=== PATIENT | female | born 1960 | race Caucasian/White ===

== ENCOUNTER → 2020-12-31 | Outpatient (CLI) | payer MEDICARE, OTHER ==
[2020-12-31 14:07] VITALS: BP 144/80; PULSE 73; TEMP 98.1; BMI 56.6
--- NOTE | 2020-12-31 15:12 | P.HPBAR ---
Bariatric H&P - History & Physicial H&P Date: 12/31/20 History & Physicial: Visit/CC: initial clinic visit Patient initial contact: Initial weight: Initial weight in pounds: Height: 5 ft Initial BMI: Last weight: Current weight: 131.542 kg Current weight in pounds: 290.00 Current BMI: 56.6 [place] body weight (based on NIH guidelines): 45.359 kg Excess body weight loss: The patient is a 60 year-old F who presents for Bariatric Assessment. The patient presents to the bariatric clinic complaints of morbid obesity. States she has suffered with her weight for many years. She has been through the weight loss surgery process on 2 separate occasions previously once at [facility] and once at [facility]. The first time the patient says she was fearful and canceled the surgery the second time was related to Covid. Remains interested in sleeve gastrectomy. Her best friend had the sleeve. Patient states this is the heaviest she has been. She is using a walker because of severe knee arthritis bilaterally and is unable to walk without the walker for the most part. Current BMI 56. Patient has medical history including asthma osteoarthritis and mild reflux. Patient quit tobacco in 2005. In 2006 patient had a acute pulmonary embolism and was on the ventilator for a prolonged period of time requiring tracheostomy. Patient states she has no residual lung damage from that that she is aware of. Denies DVT. He is on Coumadin still. Surgical history includes hysterectomy, laparoscopic cholecystectomy, bladder suspension, tracheostomy. Says she had a full cardiac workup 2 years ago. No known heart problems. Review of Systems The patient denies any acute changes in vision or hearing, no dysphagia or odynophagia, no chest pain or shortness of breath, no dysuria or hematuria, no headache, no runny nose, no rectal bleeding or melena, no unexplained weight loss Past Medical History Past Medical History: Asthma, COPD, Pneumonia Additional Past Medical History / Comment(s): Hx. exzema, irregular hear rate History of Any Multi-Drug Resistant Organisms: None Reported Past Surgical History: Bladder Surgery, Cholecystectomy, Hysterectomy Additional Past Surgical History / Comment(s): Hx. tracheotomy from PE in 2005 Past Anesthesia/Blood Transfusion Reactions: No Reported Reaction Past Psychological History: No Psychological Hx Reported Smoking Status: Former smoker Past Alcohol Use History: Rare Past Drug Use History: None Reported Surgical - Exam Vital Signs Temp Pulse BP 98.1 F 73 144/80 12/31/20 13:57 12/31/20 13:57 12/31/20 13:57 Physical exam: General: Well-developed, well-nourished HEENT: Normocephalic, sclerae nonicteric Abdomen: Nontender, nondistended Extremities: No edema Neuro: Alert and oriented Bariatric Assessment & Plan (1) Morbid obesity with BMI of 50.0-59.9, adult Narrative/Plan: Patient good candidate for weight loss surgery. Patient interested in sleeve gastrectomy. Risks and benefits of the potential common there are 2 procedures reviewed again. Average weight loss with the bariatric procedures discussed as well. We'll plan upper endoscopy prior to scheduling for sleeve gastrectomy. Patient will follow-up with me back in the office after EGD performed. Will obtain medical clearance from Dr. De Santiago. Status: Acute Bariatric Checklist Checklist: Plan: Checklist: EGD: 1. Hiatal hernia: 2. H. Pylori: HgbA1c: Vitamin D: Smoking: Never smoker Primary care physician referral: [facility] Psychiatry clearance: Cardiology clearance: Sleep study: Diet journal: VTE risk score: VTE risk level: Rehab needs at discharge:
== END ==
LOC: BARWHC3 13:23
PROVIDERS: ATTEND Surgery
DX: E66.01 Morbid (severe) obesity due to excess calories (principal); J44.9 Chronic obstructive pulmonary disease, unspecified; Z87.891 Personal history of nicotine dependence; Z68.43 Body mass index [BMI] 50.0-59.9, adult; Z88.0 Allergy status to penicillin; Z91.012 Allergy to eggs; Z88.1 Allergy status to other antibiotic agents
CPT/HCPCS: 99203

== ENCOUNTER → 2021-02-12 | Outpatient (CLI) | payer MEDICARE, OTHER ==
[2021-02-12 20:01] LABS: Iron 82 ug/dL (50-170)
[2021-02-12 20:13] LABS: Folate, Serum 19.9 ng/mL
[2021-02-12 21:36] LABS: Vitamin B12 >4000.0 pg/mL (211-911)
== END | disposition home or self-care (01) ==
LOC: LABWHC1 10:26
PROVIDERS: ATTEND Surgery
DX: E89.1 Postprocedural hypoinsulinemia (principal); E55.9 Vitamin D deficiency, unspecified; E66.01 Morbid (severe) obesity due to excess calories; K90.89 Other intestinal malabsorption
CPT/HCPCS: 36415; 82607; 82746; 83540; 84425; 93005

== ENCOUNTER 2021-02-16 09:45 | Day surgery (SDC) | payer MEDICARE, OTHER ==
[2021-02-11 14:37] VITALS: BMI 53.8
[~2021-02-16 09:45] MED LIST: LACTATED RINGERS 1,000 ML IV SCH
[2021-02-16 10:20] VITALS: TEMP 98.4
[2021-02-16] MEDS ORDERED: PROPOFOL 10 MG/ML 20 ML VIAL IV ONE (10:49)
[2021-02-16] MEDS ORDERED: LIDOCAINE 1% INJ 10MG/ML (20 ML MDV) ONE (10:49)
--- NOTE | 2021-02-16 10:54 | P.GSHP ---
History of Present Illness H&P Date: 02/16/21 Chief Complaint: GERD, preoperative 60-year-old female seen in the office in December for bariatric assessment. She is interested in sleeve gastrectomy. Mild reflux symptoms. Medical history of asthma and arthritis GERD PE. Past Medical History Past Medical History: Asthma, COPD, Pneumonia Additional Past Medical History / Comment(s): Hx. exzema, irregular hear rate History of Any Multi-Drug Resistant Organisms: None Reported Date of last positivie culture/infection: 2016 MDRO Source:: anal Past Surgical History: Bladder Surgery, Cholecystectomy, Hysterectomy Additional Past Surgical History / Comment(s): Hx. tracheotomy from PE in 2005 Past Anesthesia/Blood Transfusion Reactions: No Reported Reaction Smoking Status: Former smoker Medications and Allergies Home Medications Medication Instructions Recorded Confirmed Type HYDROcodone/APAP 7.5-325MG [[place] 1 tab PO BID PRN 12/18/13 02/16/21 History 7.5-325] Levothyroxine Sodium [Synthroid] 50 mcg PO QAM 12/18/13 02/16/21 History Warfarin [Coumadin] 7.5 mg PO DAILY 12/18/13 02/11/21 History Albuterol Sulfate [Proair Hfa] 2 puff INHALATION BID PRN 12/24/13 02/16/21 History Metoprolol Tartrate [Lopressor] 75 mg PO BID 12/24/13 02/16/21 History Furosemide [Lasix] 40 mg PO DAILY PRN 09/09/14 02/16/21 History Ascorbic Acid [Vitamin C] 500 mg PO DAILY 01/15/21 02/11/21 History Cholecalciferol (Vitamin D3) 125 mcg PO DAILY 01/15/21 02/11/21 History [Vitamin D3 (5000 Iu)] Cyanocobalamin [Vitamin B-12] 500 mcg PO BID 01/15/21 02/16/21 History Fluticasone/Salmeterol [Advair Hfa 2 puff INHALATION BID 01/15/21 02/16/21 History 115-21 Mcg Inhaler] Vitamin A 3,000 mcg PO DAILY 01/15/21 02/11/21 History Vitamin B Complex 1 each PO DAILY 01/15/21 02/11/21 History Zinc 50 mg PO DAILY 01/15/21 02/11/21 History Enoxaparin [Lovenox] 120 mg SQ Q12HR 02/11/21 02/16/21 History Ipratropium-Albuterol Nebulize 3 ml INHALATION Q4H PRN 02/11/21 02/16/21 History [Duoneb 0.5 mg-3 mg/3 ml Soln] Allergies Allergy/AdvReac Type Severity Reaction Status Date / Time Penicillins Allergy Severe Rash/Hives Verified 02/16/21 10:12 tetracycline [Tetracycline] Allergy Severe Rash/Hives Verified 02/16/21 10:12 cephalexin [From Keflex] Allergy Rash/Hives Verified 02/16/21 10:12 sulfamethoxazole Allergy Rash/Hives Verified 02/16/21 10:12 [From Bactrim] trimethoprim [From Bactrim] Allergy Rash/Hives Verified 02/16/21 10:12 raw eggs Allergy BURNING IN Uncoded 02/16/21 10:12 EARS Surgical - Exam Vital Signs Temp Pulse Resp BP Pulse Ox 98.4 F 67 17 183/84 94 L 02/16/21 10:16 02/16/21 10:16 02/16/21 10:16 02/16/21 10:16 02/16/21 10:16 Physical exam: General: Well-developed, well-nourished HEENT: Normocephalic, sclerae nonicteric Abdomen: Nontender, nondistended Extremities: No edema Neuro: Alert and oriented Assessment and Plan (1) Morbid obesity with BMI of 50.0-59.9, adult Narrative/Plan: Will proceed with upper endoscopy Current Visit: No Status: Acute Code(s): E66.01 - MORBID (SEVERE) OBESITY DUE TO EXCESS CALORIES; Z68.43 - BODY MASS INDEX [BMI] 50.0-59.9, ADULT SNOMED Code(s): 531189735
--- NOTE | 2021-02-16 11:03 | P.PCN ---
Date of Procedure: 02/16/21 Procedure(s) Performed: Preoperative Dx: GERD, presurgical Postoperative Dx: Mild gastritis Procedure: EGD with Bx Anesthesia: Sedation Endoscopist: Dr. Dominguez Specimens: Antrum Endoscopic Procedure: The patient was on the endoscopy table in the left decubitus position. The Olympus gastroscope was inserted into the oropharynx and passed under direct visualization to the region of the third portion of the duodenum. From that point the scope was slowly withdrawn inspecting all surfaces carefully. There were no neoplastic inflammatory or polypoid lesions throughout the duodenum. The pylorus was widely patent. The stomach was carefully inspected. There was mild gastritis present. A biopsy of the antrum took place to rule out H. pylori. Retroflexion revealed a normal hiatus. The esophagus was then carefully examined. There were no neoplastic inflammatory or polypoid lesions throughout the visualized esophagus. The patient was then taken to the recovery room in stable condition per anesthesia guidelines. Recommendations: Resume diet. Follow-up bariatric clinic.
[2021-02-16 11:22] VITALS: BP 162/81; PULSE 58; RESP 18
== END 2021-02-16 11:35 | disposition home or self-care (01) ==
LOC: ORWHC2ENDO 09:45
PROVIDERS: ATTEND Surgery
DX: K21.9 Gastro-esophageal reflux disease without esophagitis (principal); K29.50 Unspecified chronic gastritis without bleeding; J44.9 Chronic obstructive pulmonary disease, unspecified; Z87.891 Personal history of nicotine dependence; Z79.899 Other long term (current) drug therapy; Z88.0 Allergy status to penicillin; Z88.2 Allergy status to sulfonamides; Z88.1 Allergy status to other antibiotic agents; Z91.012 Allergy to eggs; E66.01 Morbid (severe) obesity due to excess calories; Z68.43 Body mass index [BMI] 50.0-59.9, adult; I10 Essential (primary) hypertension; M19.90 Unspecified osteoarthritis, unspecified site; E07.9 Disorder of thyroid, unspecified; Z86.711 Personal history of pulmonary embolism; Z79.01 Long term (current) use of anticoagulants
CPT/HCPCS: 88305; 43239; J2001; J2704

== ENCOUNTER → 2021-03-01 | Outpatient (CLI) | payer MEDICARE, OTHER ==
[2021-03-01 15:43] VITALS: BMI 56.0
== END ==
LOC: BARWHC3 08:48
PROVIDERS: ATTEND Surgery
DX: E66.01 Morbid (severe) obesity due to excess calories (principal); Z71.3 Dietary counseling and surveillance; Z68.43 Body mass index [BMI] 50.0-59.9, adult; Z88.0 Allergy status to penicillin; Z88.1 Allergy status to other antibiotic agents; Z88.2 Allergy status to sulfonamides; Z91.012 Allergy to eggs
CPT/HCPCS: 97804

== ENCOUNTER → 2021-04-20 | Outpatient (CLI) | payer MEDICARE, OTHER ==
--- NOTE | 2021-04-21 10:53 | ECHOF ---
Referral Reason:I27.20 pulmonary hypertension MEASUREMENTS -------- HEIGHT: 152.4 cm WEIGHT: 128.4 kg BP: IVSd: 1.3 cm (0.6 - 1.1) LVIDd: 4.4 cm (3.9 - 5.3) LVPWd: 1.3 cm (0.6 - 1.1) EDV(Teich): 87 ml IVSs: 1.6 cm LVIDs: 3.1 cm LVPWs: 1.5 cm %IVS Thck: 26 % ESV(Teich): 37 ml EF(Teich): 57 % %FS: 30 % SV(Teich): 50 ml RVIDd: 4.0 cm (< 3.3) IVC: 20.78 mm LALs A4C: 4.9 cm LAAs A4C: 16.8 cm LAESV A-L A4C: 49 ml LAESV MOD A4C: 44 ml LALs A2C: 5.1 cm LAAs A2C: 18.1 cm LAESV A-L A2C: 55 ml LAESV MOD A2C: 52 ml LAESV(A-L): 53 ml LAESV Index (A-L): 24.47 ml/m Ao Diam: 2.7 cm (2.0 - 3.7) LA Diam: 3.4 cm (2.7 - 3.8) AV Cusp: 1.8 cm (1.5 - 2.6) EPSS: 0.4 cm MV E Dc: 0.81 m/s MV DecT: 180 ms MV Dec Zavala: 4.5 m/s MV A Dc: 0.97 m/s MV E/A Ratio: 0.84 MV PHT: 52 ms LVOT Vmax: 0.95 m/s LVOT maxP.64 mmHg AV Vmax: 1.32 m/s AV maxP.95 mmHg TR Vmax: 2.81 m/s TR maxP.61 mmHg RAP: 5.00 mmHg RVSP: 36.61 mmHg MV EF SLOPE: 89.33 mm/s (70 - 150) MV EXCURSION: 17.70 mm (> 18.000) FINDINGS -------- Sinus rhythm. This was a technically difficult study with suboptimal views. The left ventricular size is normal. There is mild concentric left ventricular hypertrophy. Overa ll left ventricular systolic function is normal with, an EF between 55 - 60 %. The diastolic fillin g pattern is normal for the age of the patient 14.54. The right ventricle is moderately enlarged. Normal LA size by volume 22+/-6 ml/m2. The right atrium was not well visualized. 5.0mg of Lumason was utilized for enhancement of images Interatrial and interventricular septum intact. There is no evidence of aortic regurgitation. There is no evidence of aortic stenosis. No mitral regurgitation. Mild tricuspid regurgitation present. There is mild pulmonary hypertension. The right ventricular systolic pressure, as measured by Doppler, is 36.61mmHg. There is no pulmonic regurgitation present. The aortic root size is normal. The inferior vena cava is mildly dilated. There is no pericardial effusion. CONCLUSIONS -------- 1. The left ventricular size is normal. 2. There is mild concentric left ventricular hypertrophy. 3. Overall left ventricular systolic function is normal with, an EF between 55 - 60 %. 4. The right ventricle is moderately enlarged. 5. Mild tricuspid regurgitation present. 6. There is mild pulmonary hypertension. 7. The right ventricular systolic pressure, as measured by Doppler, is 36.61mmHg. 8. The inferior vena cava is mildly dilated. DIRECT SUPPORT SPECIALIST: Kaitlynn Milton RDCS
== END | disposition home or self-care (01) ==
LOC: RADECHMAIN 14:59
PROVIDERS: ATTEND Family Medicine
DX: I27.20 Pulmonary hypertension, unspecified (principal); I07.1 Rheumatic tricuspid insufficiency
CPT/HCPCS: C8929; Q9950; 93306

== ENCOUNTER → 2021-05-04 | Outpatient (CLI) | payer MEDICARE, OTHER ==
[2021-05-04 16:09] VITALS: BP 178/68; PULSE 76; TEMP 98; BMI 54.9
--- NOTE | 2021-05-04 16:22 | P.BASOAP ---
Subjective Progress Note Date: 05/04/21 Principal diagnosis: Morbid obesity Patient returns for repeat preop evaluation. Underwent EGD 02/16 showing mild gastritis. 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 Remains on what thinners in the form of eloquis. No changes to her history and physical. Remains interested in sleeve gastrectomy. Objective - Vital Signs Vital signs: Vital Signs Temp 98 F 05/04/21 15:56 Pulse 76 05/04/21 15:56 Resp BP 178/68 05/04/21 15:56 Pulse Ox Intake & Output 05/03/21 05/04/21 05/04/21 18:59 06:59 18:59 Weight 129.727 kg - Exam Abdomen: Soft, nontender, nondistended Assessment/Plan (1) Morbid obesity with BMI of 50.0-59.9, adult Narrative/Plan: 60-year-old female with morbid obesity and comorbidities. Patient remains interested in sleeve gastrectomy. Surgical consent form and [facility] IP data reviewed with her. All questions answered. Await medical clearance and pulmonary clearance. We'll schedule. Plan: Date: 05/04/21 Initial Weight: Initial BMI: Current Weight: 129.727 kg Current BMI: 54.9 Type of Surgery: Total Volume in Band: Previous Volume: Volume Removed: Volume Added: Band Size:
== END ==
LOC: BARWHC3 14:27
PROVIDERS: ATTEND Surgery
DX: E66.01 Morbid (severe) obesity due to excess calories (principal); Z68.43 Body mass index [BMI] 50.0-59.9, adult; Z88.0 Allergy status to penicillin; Z88.1 Allergy status to other antibiotic agents; Z88.2 Allergy status to sulfonamides; Z91.012 Allergy to eggs
CPT/HCPCS: 99211

== ENCOUNTER → 2021-06-19 | Outpatient (CLI) | payer MEDICARE, OTHER ==
[2021-06-19 12:11] LABS: Basophils # (A) 0.1 k/uL (0-0.2); Basophils % (A) 1 %; Eosinophils # (A) 0.2 k/uL (0-0.7); Eosinophils % (A) 2 %; HCT 44.2 % (34.0-46.0); HGB 14.3 gm/dL (11.4-16.0); Lymphocytes % (A) 19 %; MCH 29.4 pg (25.0-35.0); MCHC 32.4 g/dL (31.0-37.0); MCV 90.9 fL (80.0-100.0); Mean Platelet Volume 7.5; Monocytes # (A) 0.5 k/uL (0-1.0); Monocytes % (A) 5 %; Neutrophils # (A) 7.6 k/uL (1.3-7.7); Neutrophils % (A) 71 %; Platelet Count 252 k/uL (150-450); RBC 4.86 m/uL (3.80-5.40); RDW 13.8 % (11.5-15.5); WBC 10.6 k/uL (3.8-10.6)
[2021-06-19 12:29] LABS: ALT 40 U/L (4-34); AST 34 U/L (14-36); African American GFR (CKD) >90 (>60 ml/min/1.73 sqM); Albumin 3.8 g/dL (3.5-5.0); Alkaline Phosphatase 84 U/L (38-126); Anion Gap 7 mmol/L; Blood Urea Nitrogen 28 mg/dL (7-17); Calcium 10.1 mg/dL (8.4-10.2); Carbon Dioxide 30 mmol/L (22-30); Chloride 101 mmol/L (98-107); Glucose 108 mg/dL (74-99); Non-African American GFR(CKD) >90 (>60 ml/min/1.73 sqM); Sodium 138 mmol/L (137-145); Total Bilirubin 0.6 mg/dL (0.2-1.3); Total Protein 7.4 g/dL (6.3-8.2)
== END | disposition home or self-care (01) ==
LOC: LABPAT 11:21
PROVIDERS: ATTEND Surgery
DX: Z01.812 Encounter for preprocedural laboratory examination (principal)
CPT/HCPCS: 36415; 80053; 85025

== ENCOUNTER 2021-06-21 07:45 | Inpatient (IN) | payer MEDICARE, OTHER ==
[~2021-06-21 07:45] MED LIST changes: +CLINDAMYCIN 900 MG in DEXTROSE 5% IN WATER 50 ML IVPB PRN; +DEXAMETHASONE SOD PHOSPHATE 4 MG/ML 1 ML VIAL IV ONE; +ENOXAPARIN 40 MG/0.4 ML SYRINGE SQ PRN; +GENTAMICIN 400 MG in SODIUM CHLORIDE 0.9% 100 ML IVPB PRN; -LACTATED RINGERS 1,000 ML IV SCH; +LIDOCAINE 1% (10MG/ML) FOR IV START INTRADERMA PRN; +ONDANSETRON 4 MG/2 ML VIAL IVP ONE; +SCOPOLAMINE 1.5MG/72HR PATCH TRANSDERM ONE
--- NOTE | 2021-06-21 09:51 | P.GSHP ---
History of Present Illness H&P Date: 06/21/21 Chief Complaint: Morbid obesity 60-year-old female initially seen for bariatric consultation in December of this year. Patient has tried a variety of weight loss methods over the years without sustained success. Patient is interested in sleeve gastrectomy. Patient suffers from arthritis asthma and mild reflux. Patient with history of previous pulmonary embolism and required a tracheostomy at that time. Remains on Coumadin. Patient underwent recent upper endoscopy showing mild gastritis. Recent BMI 56. History of previous tobacco use but quit many years ago. Past Medical History Past Medical History: Asthma, COPD, Musculoskeletal Disorder, Osteoarthritis (OA), Pneumonia, Pulmonary Embolus (PE), Thyroid Disorder Additional Past Medical History / Comment(s): Hx. exzema, irregular heart rate, PE in 2005, hypoglycemia, low back pain, urinary incontinence History of Any Multi-Drug Resistant Organisms: None Reported Past Surgical History: Bladder Surgery, Cholecystectomy, Hysterectomy Additional Past Surgical History / Comment(s): Hx. tracheotomy from PE in 2005, bladder suspension, EGD Past Anesthesia/Blood Transfusion Reactions: No Reported Reaction Smoking Status: Former smoker - Past Family History Mother Family Medical History: No Reported History Medications and Allergies Home Medications Medication Instructions Recorded Confirmed Type Albuterol Sulfate [Proair Hfa] 2 puff INHALATION BID PRN 12/24/13 06/17/21 History Metoprolol Tartrate [Lopressor] 75 mg PO BID 12/24/13 06/17/21 History Furosemide [Lasix] 20 mg PO DAILY PRN 09/09/14 06/17/21 History Ascorbic Acid [Vitamin C] 500 mg PO DAILY 01/15/21 06/17/21 History Cholecalciferol (Vitamin D3) 125 mcg PO DAILY 01/15/21 06/17/21 History [Vitamin D3 (5000 Iu)] Cyanocobalamin [Vitamin B-12] 500 mcg PO DAILY 01/15/21 06/17/21 History Fluticasone/Salmeterol [Advair Hfa 2 puff INHALATION BID 01/15/21 06/17/21 History 115-21 Mcg Inhaler] Vitamin B Complex 1 each PO DAILY 01/15/21 06/17/21 History Zinc 50 mg PO DAILY 01/15/21 06/17/21 History Ipratropium-Albuterol Nebulize 3 ml INHALATION Q4H PRN 02/11/21 06/17/21 History [Duoneb 0.5 mg-3 mg/3 ml Soln] Apixaban [Eliquis] 5 mg PO BID 03/01/21 06/17/21 History HYDROcodone/APAP 7.5-325MG [[place] 1 tab PO Q6HR PRN 06/17/21 06/17/21 History 7.5-325] Levothyroxine Sodium [Euthyrox] 50 mcg PO DAILY 06/17/21 06/17/21 History Potassium Gluconate [Potassium 99 mg PO HS 06/17/21 06/17/21 History Gluconate ER] Allergies Allergy/AdvReac Type Severity Reaction Status Date / Time Penicillins Allergy Severe Rash/Hives Verified 06/17/21 12:05 tetracycline [Tetracycline] Allergy Severe Rash/Hives Verified 06/17/21 12:05 cephalexin [From Keflex] Allergy Rash/Hives Verified 06/17/21 12:05 sulfamethoxazole Allergy Rash/Hives Verified 06/17/21 12:05 [From Bactrim] trimethoprim [From Bactrim] Allergy Rash/Hives Verified 06/17/21 12:05 raw eggs Allergy BURNING IN Uncoded 06/17/21 12:05 EARS Surgical - Exam Physical exam: General: Well-developed, well-nourished HEENT: Normocephalic, sclerae nonicteric Abdomen: Nontender, nondistended Extremities: No edema Neuro: Alert and oriented Assessment and Plan (1) Morbid obesity with BMI of 50.0-59.9, adult Narrative/Plan: Will proceed with laparoscopic sleeve gastrectomy at this time. Medical clearance has been obtained by Dr. De Santiago. Patient's recent echo shows normal ejection fraction. The risks of bleeding, infection, stenosis, stricture, leak, abscess, fistula formation, peritonitis, poor weight loss, reflux, vomiting, conversion to an open procedure, aborting sleeve gastrectomy, [place], PE, DVT, and were discussed. The patient understands and wishes to proceed. Status: Acute Code(s): E66.01 - MORBID (SEVERE) OBESITY DUE TO EXCESS CALORIES; Z68.43 - BODY MASS INDEX [BMI] 50.0-59.9, ADULT SNOMED Code(s): 421721604
[2021-06-21] MEDS: LACTATED RINGERS 1,000 ML IV SCH (10:51)
[2021-06-21 10:56] LABS: Glucose,Whole Blood 101 mg/dL (75-99)
[2021-06-21] MEDS ORDERED: PROPOFOL 10 MG/ML 20 ML VIAL IV ONE (11:00)
[2021-06-21] MEDS ORDERED: PHENYLEPHRINE-0.9% NACL SYG 1,000 MCG/10 ML SYRINGE ONE (11:00)
[2021-06-21] MEDS ORDERED: NEOSTIGMINE 1 MG/ML 10 ML VIAL ONE (11:00)
[2021-06-21] MEDS ORDERED: HYDROmorphone (PF) 1 MG/ML ONE (11:00)
[2021-06-21] MEDS ORDERED: SUCCINYLCHOLINE CHLORIDE 100 MG/5 ML SYR IV ONE (11:00)
[2021-06-21] MEDS ORDERED: GLYCOPYRROLATE 0.2 MG/ML 2 ML VIAL ONE (11:00)
[2021-06-21] MEDS ORDERED: ROCURONIUM 10 MG/ML (5 ML VIAL) IV ONE (11:00)
[2021-06-21] MEDS ORDERED: fentaNYL (PF) 50 MCG/ML 2 ML AMP ONE (11:00)
[2021-06-21] MEDS ORDERED: MIDAZOLAM 2 MG/2 ML VIAL ONE (11:00)
[2021-06-21] MEDS ORDERED: LIDOCAINE 1% INJ 10MG/ML (20 ML MDV) ONE (11:00)
[2021-06-21] MEDS ORDERED: BUPIVACAINE (PF) 0.25% 30 ML VIAL SQ ONE (11:31)
[2021-06-21] MEDS ORDERED: LACTATED RINGERS 1,000 ML IV ONE ×2 (12:45)
[2021-06-21] MEDS ORDERED: METHYLENE BLUE 3 MG in DEXTROSE 5% IN WATER 500 ML IRRIGATION ONE ×4 (13:03)
[2021-06-21] MEDS ORDERED: NALOXONE 0.4 MG/ML 1 ML VIAL IV PRN (13:21)
[2021-06-21] MEDS ORDERED: HYOSCYAMINE ORAL DROPS 1.875 MG/15 ML BOTTLE PO PRN (13:21)
[2021-06-21] MEDS ORDERED: diphenhydrAMINE 50 MG/ML 1 ML VIAL IVP PRN (13:21)
[2021-06-21] MEDS ORDERED: ONDANSETRON 4 MG/2 ML VIAL IVP PRN (13:21)
--- NOTE | 2021-06-21 13:28 | P.OP ---
Date of Procedure: 06/21/21 Procedure(s) Performed: PREOPERATIVE DIAGNOSIS: Morbid obesity, asthma, arthritis, GERD POSTOPERATIVE DIAGNOSIS: Same, small moderate sized hiatal hernia PROCEDURE: Laparoscopic sleeve gastrectomy SURGEON: Alberto EBL: Minimal ANESTHESIA: General COMPLICATIONS: None OPERATIVE PROCEDURE: Patient was placed in the operating table in the supine position. She was placed under general anesthesia at that time. The abdomen was prepped and draped in sterile fashion after the patient was placed in lithotomy. A 5 mm optical trocar was used to enter the abdominal cavity in the left upper quadrant. Insufflation took place to 15 millimeters mercury. An additional right subxiphoid 5 mm trocar was then placed under direct visualization and then removed. 2 additional 5 mm trochars were placed in the right upper quadrant and left upper quadrant under direct visualization and a 15 mm trocar in the supraumbilical location. The liver was retracted using a medium Norm liver retractor through the right subxiphoid trocar site. The hiatus was inspected. The patient had evidence of a small moderate sized hiatal hernia. The patient also was noted to have an adhesive band between the body of the stomach in the left abdominal wall closer to the greater curvature. This was from previous suspected PEG tube placement. These adhesions were easily lysed using a LigaSure. I approached the greater curvature first. The short gastric vasculature was divided using a LigaSure device proximally. I then s witched and divided the short gastrics distally to a 3-4 cm from the pylorus. The dissection took place up to the left diaphragmatic crura at that point. The posterior short gastrics were likewise divided using the LigaSure device. At that point the hiatus was addressed. Circumferentially the phrenoesophageal ligament was divided. The gastrohepatic ligament had been opened. Retrogastric dissection took place fully. The hiatus was later closed using 2 separate 2-0 Ethibond sutures reapproximating the crura posteriorly. The sutures were tied down using the tie knot device. At this time the blunt tipped 40-Sammarinese bougie dilator was advanced into the stomach and advanced all the way to the prepyloric location. A black echelon 60 stapler with echelon Endopath staple line reinforcement was utilized and fired tangentially across the antrum taking care to avoid narrowing at the incisura angularis. Subsequent firings of the green echelon 60 stapler with echelon Endopath staple line reinforcement took place proximally staying on the outer edge of our dilator. The oral gastric tube was reinserted. The stomach was insufflated with approximately 100 mL of methylene blue. No evidence of leak or obstruction was seen. Tisseel fibrin glue was used along the length of the staple line. The stomach remnant was removed from the 15 mm trocar site without difficulty. The fascia at the 15 more site was closed using interrupted 0 Vicryl sutures with the laparoscopic suture passer and Addy Jean technique. The insufflation was evacuated. The skin at all 5 incisions were closed using 4-0 Monocryl sutures. Skin glue was then applied. DISPOSITION: Stable to recovery room
[2021-06-21] MEDS ORDERED: diphenhydrAMINE 50 MG/ML 1 ML VIAL IVP ONE (13:33)
[2021-06-21] MEDS: HYDROmorphone 0.5 MG/0.5 ML SYRINGE IVP PRN ×3 (13:57→14:38)
[2021-06-21] MEDS ORDERED: hydrALAZINE HCL 20 MG/ML 1 ML VIAL IVP ONE (14:34)
[2021-06-21] MEDS ORDERED: hydrALAZINE HCL 20 MG/ML 1 ML VIAL ONE (14:36)
[2021-06-21] MEDS: ALBUTEROL NEBULIZED 2.5 MG/3 ML INHALATION SCH ×2 (16:35→21:27)
[2021-06-21] MEDS: ACETAMINOPHEN IV (For NPO) 1,000 MG in EMPTY BAG 1 BAG IVPB SCH ×2 (17:06→22:21)
[2021-06-21] MEDS: HYDROmorphone 1 MG/ML 1 ML SYRINGE IVP PRN ×3 (17:29→23:45)
[2021-06-21] MEDS ORDERED: ALBUTEROL NEBULIZED 2.5 MG/3 ML INHALATION PRN (18:26)
[2021-06-21] MEDS: 0.9% NACL WITH KCL 20 MEQ/L 1,000 ML IV SCH ×2 (18:42→21:31)
[2021-06-21] MEDS: SIMETHICONE 40 MG/0.6 ML DROPS 2,000 MG/30 ML BOTTLE PO PRN (19:53)
[2021-06-21] MEDS: METOPROLOL TARTRATE 25 MG TAB PO SCH (19:55)
--- NOTE | 2021-06-21 21:06 | P.CONS ---
History of Present Illness - Reason for Consult Consult date: 06/21/21 Medical management Requesting physician: Santi Dominguez - Chief Complaint Sleeve gastrectomy - History of Present Illness This is a very pleasant 60-year-old patient who follows with Dr. De Santiago. Chronic stable medical conditions include COPD, osteoarthritis, pulmonary embolism in 2006, hypothyroid, urinary incontinence. Patient has undergone sleeve gastrectomy. Postprocedure patient nothing by mouth. Having pain in the abdomen. No nausea vomiting. Laying in bed. Review of systems: GEN.: Tired EYES: None HEENT: None NECK: None RESPIRATORY: None CARDIOVASCULAR: None GASTROINTESTINAL: As above GENITOURINARY: None MUSCULOSKELETAL: Pain in several joints LYMPHATICS: None HEMATOLOGICAL: None PSYCHIATRY: None NEUROLOGICAL: None Past medical history to include: COPD, OA, PE, hypothyroid, eczema, urinary incontinence, Social history: This is a brother. Smoked a pack a day for close to 30 years. Stopped in 2005. Alcohol rarely. Family history: Reviewed, noncontributory to presentation Physical examination: VITAL SIGNS: Afebrile, 74, 16, 1 46 x 91, 91% GENERAL: BMI 54.9, laying in bed awake. EYES: Pupils equal. Conjunctiva normal. HEENT: External appearance of nose and ears normal, oral cavity grossly normal. NECK: JVD not raised; masses not palpable. HEART: First and second heart sounds are normal; no edema. LUNGS: Respiratory rate normal; decreased breath sounds. ABDOMEN: Soft, tender, no guarding rigidity, liver spleen not palpable, no masses palpable. PSYCH: Alert and oriented x3; mood and affect normal. NEUROLOGICAL: Cranial nerves grossly intact; no facial asymmetry, power and sensation grossly intact. LYMPHATICS: No lymph nodes palpable in the axilla and neck INVESTIGATIONS, reviewed in the clinical context: [June 19] WBC 10.6 hemoglobin 14.3 platelets 252 potassium 5 BUN 28 creatinine 0.71 Assessment and plan:: -Morbid obesity BMI 54.9 Weight loss measures. -Sleeve gastrectomy. Diet as per surgery. Oral medications should be resumed when okay by surgeon. -COPD in an ex-smoker Advair 150/21 2 puffs twice a day, albuterol 2 puffs twice a day when necessary -Primary osteoarthritis multiple joints bilateral Pain medication as needed -Hypothyroid Synthroid 50 g a day -Chronic urinary stress incontinence Diapers -Essential hypertension Lopressor 75 mg twice a day Patient is currently nothing by mouth. Follow fluoroscopy upper GI in the morning. Oral medications resumed when okay with Dr. Larson. Pneumatic compression sleeves. Incentive spirometry. Care was discussed with the patient. Questions answered. Thank you Dr. Larson Past Medical History Past Medical History: Asthma, COPD, Musculoskeletal Disorder, Osteoarthritis (OA), Pneumonia, Pulmonary Embolus (PE), Thyroid Disorder Additional Past Medical History / Comment(s): Hx. exzema, irregular heart rate, PE in 2005, hypoglycemia, low back pain, urinary incontinence. gastrectomy/hernia repair 06/21/2021 History of Any Multi-Drug Resistant Organisms: None Reported Past Surgical History: Bladder Surgery, Cholecystectomy, Hysterectomy Additional Past Surgical History / Comment(s): Hx. tracheotomy from PE in 2005, bladder suspension, EGD Past Anesthesia/Blood Transfusion Reactions: No Reported Reaction Past Psychological History: No Psychological Hx Reported Smoking Status: Former smoker Past Alcohol Use History: Rare Additional Past Alcohol Use History / Comment(s): quit smoking 2005, smoked since age of 15, <1ppd Past Drug Use History: None Reported - Past Family History Mother Family Medical History: No Reported History Medications and Allergies Home Medications Medication Instructions Recorded Confirmed Type Albuterol Sulfate [Proair Hfa] 2 puff INHALATION BID PRN 12/24/13 06/17/21 History Metoprolol Tartrate [Lopressor] 75 mg PO BID 12/24/13 06/17/21 History Furosemide [Lasix] 20 mg PO DAILY PRN 09/09/14 06/17/21 History Ascorbic Acid [Vitamin C] 500 mg PO DAILY 01/15/21 06/17/21 History Cholecalciferol (Vitamin D3) 125 mcg PO DAILY 01/15/21 06/17/21 History [Vitamin D3 (5000 Iu)] Cyanocobalamin [Vitamin B-12] 500 mcg PO DAILY 01/15/21 06/17/21 History Fluticasone/Salmeterol [Advair Hfa 2 puff INHALATION BID 01/15/21 06/17/21 History 115-21 Mcg Inhaler] Vitamin B Complex 1 each PO DAILY 01/15/21 06/17/21 History Zinc 50 mg PO DAILY 01/15/21 06/17/21 History Ipratropium-Albuterol Nebulize 3 ml INHALATION Q4H PRN 02/11/21 06/17/21 History [Duoneb 0.5 mg-3 mg/3 ml Soln] Apixaban [Eliquis] 5 mg PO BID 03/01/21 06/21/21 History HYDROcodone/APAP 7.5-325MG [[place] 1 tab PO Q6HR PRN 06/17/21 06/17/21 History 7.5-325] Levothyroxine Sodium [Euthyrox] 50 mcg PO DAILY 06/17/21 06/17/21 History Potassium Gluconate [Potassium 99 mg PO HS 06/17/21 06/17/21 History Gluconate ER] Allergies Allergy/AdvReac Type Severity Reaction Status Date / Time Penicillins Allergy Severe Rash/Hives Verified 06/21/21 10:55 tetracycline [Tetracycline] Allergy Severe Rash/Hives Verified 06/21/21 10:55 cephalexin [From Keflex] Allergy Rash/Hives Verified 06/21/21 10:55 sulfamethoxazole Allergy Rash/Hives Verified 06/21/21 10:55 [From Bactrim] trimethoprim [From Bactrim] Allergy Rash/Hives Verified 06/21/21 10:55 raw eggs Allergy BURNING IN Uncoded 06/21/21 10:55 EARS Physical Exam Vitals: Vital Signs Temp Pulse Pulse Pulse Resp BP Pulse Ox 06/21/21 17:15 100 146/91 91 L 06/21/21 17:00 89 155/85 93 L 06/21/21 16:53 74 06/21/21 16:45 89 159/100 91 L 06/21/21 16:36 76 94 L 06/21/21 16:30 90 133/82 93 L 06/21/21 16:15 87 129/85 96 06/21/21 16:00 91 133/88 94 L 06/21/21 15:45 97.6 F 97 16 145/88 92 L 06/21/21 15:03 80 16 149/76 99 06/21/21 14:48 83 18 174/71 100 06/21/21 14:32 68 16 175/82 100 06/21/21 14:18 76 16 176/78 95 06/21/21 14:03 86 18 187/88 95 06/21/21 13:47 81 18 148/65 97 06/21/21 13:33 74 18 148/67 95 06/21/21 13:26 96.8 F L 86 16 158/69 93 L 06/21/21 10:48 97.7 F 81 20 193/97 97 Intake and Output 06/21/21 06/21/21 06/21/21 06:59 14:59 22:59 Intake Total 1267 200 Output Total 10 Balance 1257 200 Intake: IV 1267 200 Output: Estimated Blood Loss 10 Other: Voiding Method Toilet Weight 127.5 kg 127.5 kg Results Labs: Abnormal Lab Results - Last 24 Hours (Table) 06/21/21 Range/Units 10:49 POC Glucose (mg/dL) 101 H (75-99) mg/dL
[2021-06-21] MEDS: SYMBICORT 160-4.5 MCG INHALER INHALATION SCH (21:28)
[2021-06-21] MEDS: ENOXAPARIN 40 MG/0.4 ML SYRINGE SQ SCH (23:46)
[2021-06-22] MEDS: ACETAMINOPHEN IV (For NPO) 1,000 MG in EMPTY BAG 1 BAG IVPB SCH ×3 (03:04→15:30)
[2021-06-22] MEDS: 0.9% NACL WITH KCL 20 MEQ/L 1,000 ML IV SCH (03:05)
[2021-06-22] MEDS: SIMETHICONE 40 MG/0.6 ML DROPS 2,000 MG/30 ML BOTTLE PO PRN ×3 (03:05→20:22)
[2021-06-22] MEDS: HYDROmorphone 1 MG/ML 1 ML SYRINGE IVP PRN ×3 (05:12→11:18)
[2021-06-22] MEDS: LEVOTHYROXINE 50 MCG TAB PO SCH (05:13)
[2021-06-22] MEDS: LACTATED RINGERS 1,000 ML IV SCH (06:54)
[2021-06-22] MEDS: SYMBICORT 160-4.5 MCG INHALER INHALATION SCH ×2 (08:03→20:10)
[2021-06-22] MEDS: ALBUTEROL NEBULIZED 2.5 MG/3 ML INHALATION SCH ×4 (08:03→20:10)
[2021-06-22] MEDS: ENOXAPARIN 40 MG/0.4 ML SYRINGE SQ SCH ×2 (08:23→20:22)
[2021-06-22] MEDS: 1: THIAMINE 100 MG, FOLIC ACID 1 MG in 0.9% NACL WITH KCL 20 MEQ/L 1,000 ML 2: 0.9% NAC IVPB SCH ×2 (08:23→21:13)
[2021-06-22] MEDS: PANTOPRAZOLE 40 MG/10 ML VIAL IV SCH (08:23)
--- NOTE | 2021-06-22 11:01 | P.PN ---
<Raiza Cox - Last Filed: 06/22/21 10:55> Subjective Progress Note Date: 06/22/21 CHIEF COMPLAINT: Morbid obesity HISTORY OF PRESENT ILLNESS: Patient is status post laparoscopic sleeve gastrectomy. Patient does complain of abdominal pain. Denies any nausea or vomiting. No flatus or bowel movement. She denies any difficulty urinating. She is currently nothing by mouth and awaiting her upper GI to be completed. Patient did have elevated blood pressure yesterday. BP has improved. Lab results pending PHYSICAL EXAM: VITAL SIGNS: Reviewed. GENERAL: Well-developed in no acute distress. HEENT: No sclera icterus. Extraocular movements grossly intact. Moist buccal mucosa. Head is atraumatic, normocephalic. ABDOMEN: Soft. Obese. Nondistended. Abdominal binder in place NEUROLOGIC: Alert and oriented. Cranial nerves II through XII grossly intact. ASSESSMENT: 1. Morbid obesity status post laparoscopic sleeve gastrectomy 2. Asthma 3. Osteoarthritis 4. GERD 5. Small moderate sized hiatal hernia PLAN: -Having nursing staff call to get upper GI completed -Keep patient nothing by mouth for now -Continue IV fluids -Add Toradol for pain control -Encouraged patient to use incentive spirometer -Encouraged patient to ambulate -GI prophylaxis Protonix and DVT prophylaxis Lovenox Physician Stoker Installation Mechanic note has been reviewed by physician. Signing provider agrees with the documented findings, assessment, and plan of care. Objective - Vital Signs Vital signs: Vital Signs Temp 98.9 F 06/22/21 07:46 Pulse 84 06/22/21 08:15 Resp 16 06/22/21 07:46 BP 117/68 06/22/21 07:46 Pulse Ox 99 06/22/21 07:46 Intake & Output 06/21/21 06/22/21 06/22/21 18:59 06:59 18:59 Intake Total 1467 Output Total 10 Balance 1457 Weight 127.5 kg Intake: IV 1467 Output: Estimated Blood Loss 10 Other: Voiding Method Toilet Toilet # Voids 3 - Labs Labs: Abnormal Lab Results - Last 24 Hours (Table) 06/21/21 Range/Units 10:49 POC Glucose (mg/dL) 101 H (75-99) mg/dL <Santi Dominguez - Last Filed: 06/22/21 19:09> Subjective As above. Patient doing well today. Pain is well-controlled. Upper GI looks good. Continue Toradol for pain. Ambulate. Possible discharge tomorrow. Objective - Vital Signs Vital signs: Vital Signs Temp 98.5 F 06/22/21 14:00 Pulse 70 06/22/21 16:18 Resp 18 06/22/21 14:00 BP 168/70 06/22/21 14:00 Pulse Ox 98 06/22/21 16:07 Intake & Output 06/22/21 06/22/21 06/23/21 06:59 18:59 06:59 Weight 127.5 kg Other: Voiding Method Toilet Toilet # Voids 3 3 - Labs CBC & Chem 7: 06/22/21 06:59 06/22/21 06:59 Labs: Abnormal Lab Results - Last 24 Hours (Table) 06/22/21 06/22/21 Range/Units 06:59 06:59 WBC 11.01 H (4.50-10.00) X 10*3/uL MCHC 31.2 L (32.0-37.0) g/dL Neutrophils # 8.38 H (1.80-7.70) X 10*3/uL Monocytes # 1.21 H (0.20-1.00) X 10*3/uL Eosinophils # 0.02 L (0.04-0.35) X 10*3/uL Anion Gap 12.30 H (4.00-12.00) mmol/L Assessment and Plan (1) Morbid obesity with BMI of 50.0-59.9, adult Current Visit: No Status: Acute Code(s): E66.01 - MORBID (SEVERE) OBESITY DUE TO EXCESS CALORIES; Z68.43 - BODY MASS INDEX [BMI] 50.0-59.9, ADULT SNOMED Code(s): 208861227
[2021-06-22 11:40] LABS: Basophils # (A) 0.03 X 10*3/uL (0.00-0.10); Basophils % (A) 0.3 %; Eosinophils # (A) 0.02 X 10*3/uL (0.04-0.35); Eosinophils % (A) 0.2 %; HCT 40.1 % (37.2-46.3); HGB 12.5 g/dL (12.0-15.0); Lymphocytes # (A) 1.33 X 10*3/uL (0.90-5.00); Lymphocytes % (A) 12.1 %; MCH 28.7 pg (27.0-32.0); MCHC 31.2 g/dL (32.0-37.0); Mean Platelet Volume 10.5 fL (9.5-12.2); Monocytes # (A) 1.21 X 10*3/uL (0.20-1.00); Neutrophils # (A) 8.38 X 10*3/uL (1.80-7.70); Platelet Count 238 X 10*3/uL (140-440); RBC 4.36 X 10*6/uL (4.10-5.20); RDW 14.4 % (11.5-14.5); WBC 11.01 X 10*3/uL (4.50-10.00)
[2021-06-22 11:43] VITALS: BMI 54.8
[2021-06-22 12:11] LABS: African American GFR (CKD) 108.4 (60.0-200.0); Anion Gap 12.3 mmol/L (4.00-12.00); Blood Urea Nitrogen 16.4 mg/dL (9.0-27.0); Calcium 8.8 mg/dL (8.7-10.3); Carbon Dioxide 25.7 mmol/L (21.6-31.8); Magnesium 1.9 mg/dL (1.5-2.4); Non-African American GFR(CKD) 93.5 (60.0-200.0); Phosphorus 3.4 mg/dL (2.4-5.1)
--- NOTE | 2021-06-22 12:53 | P.PN ---
Progress Note - Text Progress Note Date: 06/22/21 - Chief Complaint Sleeve gastrectomy This is a very pleasant 60-year-old patient who follows with Dr. De Santiago. Chronic stable medical conditions include COPD, osteoarthritis, pulmonary embolism in 2005, hypothyroid, urinary incontinence. Patient has undergone sleeve gastrectomy. Postprocedure patient nothing by mouth. Having pain in the abdomen. No nausea vomiting. Laying in bed. June 22: Reclining in bed. Some abdominal pain. No nausea vomiting. Pending barium upper GI. Did pass some flatus. Has been out of bed. Review of systems: Was done for constitutional, cardiovascular, GI, pulmonary. relevant finding as above Active Medications Acetaminophen (Acetaminophen Tab 500 Mg Tab) 1,000 mg PO Q6H [facility] Albuterol Sulfate (Albuterol Nebulized 2.5 Mg/3 Ml) 2.5 mg INHALATION RT-QID [facility] Last Admin: 06/22/21 11:51 Dose: Not Given Documented by: Albuterol Sulfate (Albuterol Nebulized 2.5 Mg/3 Ml) 2.5 mg INHALATION BID PRN PRN Reason: Shortness Of Breath Bisacodyl (Bisacodyl 5 Mg Tablet.Dr) 15 mg PO ONCE PRN PRN Reason: Constipation Budesonide/Formoterol Fumarate (Symbicort 160-4.5 Mcg Inhaler) 2 puff INHALATION RT-BID [facility] Last Admin: 06/22/21 08:03 Dose: 2 puff Documented by: Diphenhydramine HCl (Diphenhydramine 50 Mg/Ml 1 Ml Vial) 25 mg IVP Q6HR PRN PRN Reason: Itching Enoxaparin Sodium (Enoxaparin 40 Mg/0.4 Ml Syringe) 40 mg SQ Q12HR [facility] Last Admin: 06/22/21 08:23 Dose: 40 mg Documented by: Hydromorphone HCl (Hydromorphone 1 Mg/Ml 1 Ml Syringe) 1 mg IVP Q3HR PRN PRN Reason: Pain Last Admin: 06/22/21 11:18 Dose: 1 mg Documented by: Hyoscyamine (Hyoscyamine Oral Drops 1.875 Mg/15 Ml Bottle) 0.125 mg PO Q6HR PRN PRN Reason: Esophageal Spasm Thiamine HCl 100 mg/ Folic Acid 1 mg/ Potassium Chloride/Sodium Chloride 1,001.2 mls @ 100 mls/hr IVPB .BY DURATION [facility] Last Admin: 06/22/21 08:23 Dose: 100 mls/hr Documented by: Potassium Chloride/Sodium Chloride (Ns-Kcl 20 Meq/L Iv Solution) 1,000 mls @ 100 mls/hr IVPB .BY DURATION [facility] Acetaminophen 1,000 mg/ IV (Solution) 100 mls @ 400 mls/hr IVPB Q6H [facility] Stop: 06/22/21 16:59 Last Admin: 06/22/21 11:20 Dose: 400 mls/hr Documented by: Ketorolac Tromethamine (Ketorolac 15 Mg/Ml 1 Ml Vial) 15 mg IVP Q6HR [facility] Stop: 06/25/21 10:54 Levothyroxine Sodium (Levothyroxine 50 Mcg Tab) 50 mcg PO DAILY@0630 [facility] Last Admin: 06/22/21 05:13 Dose: Not Given Documented by: Lidocaine HCl (Lidocaine 1% (10mg/Ml) For Iv Start) 0.1 ml INTRADERMA PER PROTOCOL PRN PRN Reason: IV Start Last Admin: 06/21/21 10:49 Dose: 0.1 ml Documented by: Metoprolol Tartrate (Metoprolol Tartrate 25 Mg Tab) 75 mg PO BID [facility] Last Admin: 06/21/21 19:55 Dose: 75 mg Documented by: Naloxone HCl (Naloxone 0.4 Mg/Ml 1 Ml Vial) 0.2 mg IV Q2M PRN PRN Reason: Opioid Reversal Ondansetron HCl (Ondansetron 4 Mg/2 Ml Vial) 4 mg IVP Q6HR PRN PRN Reason: Nausea And Vomiting Last Admin: 06/21/21 14:03 Dose: 4 mg Documented by: Pantoprazole Sodium (Pantoprazole 40 Mg/10 Ml Vial) 40 mg IV DAILY [facility] Last Admin: 06/22/21 08:23 Dose: 40 mg Documented by: Simethicone (Simethicone 40 Mg/0.6 Ml Drops 2,000 Mg/30 Ml Bottle) 40 mg PO Q6HR PRN PRN Reason: Bloating Last Admin: 06/22/21 08:24 Dose: 40 mg Documented by: Past medical history to include: COPD, OA, PE, hypothyroid, eczema, urinary incontinence, Social history: This is a brother. Smoked a pack a day for close to 30 years. Stopped in 2005. Alcohol rarely. Family history: Reviewed, noncontributory to presentation Physical examination: VITAL SIGNS: 98.9, 73, 16, 117/68, 99% room air GENERAL: Laying in bed, awake EYES: Pupils equal. Conjunctiva normal. HEENT: External appearance of nose and ears normal, oral cavity grossly normal. NECK: JVD not raised; masses not palpable. HEART: First and second heart sounds are normal; no edema. LUNGS: Respiratory rate normal; decreased breath sounds. ABDOMEN: Soft, tender, no guarding rigidity, liver spleen not palpable, no masses palpable. PSYCH: Alert and oriented x3; mood and affect normal. INVESTIGATIONS, reviewed in the clinical context: June 22: White count 11 hemoglobin 12.5 sodium 142 potassium 5 creatinine 0.7 [June 19] WBC 10.6 hemoglobin 14.3 platelets 252 potassium 5 BUN 28 creatinine 0.71 Assessment and plan:: -Morbid obesity BMI 54.9 Weight loss measures. -Sleeve gastrectomy. Diet as per surgery. Oral medications should be resumed when okay by surgeon. Pending barium upper GI -COPD in an ex-smoker Advair 150/21 2 puffs twice a day, albuterol 2 puffs twice a day when necessary -Primary osteoarthritis multiple joints bilateral Pain medication as needed -Hypothyroid Synthroid 50 g a day -Chronic urinary stress incontinence Diapers -Essential hypertension Lopressor 75 mg twice a day Patient is currently nothing by mouth. Pending fluoroscopy upper GI this serena g. Oral medications resumed when okay with Dr. Larson. Thank you Dr. Larson
--- NOTE | 2021-06-22 13:51 | FL ---
EXAMINATION TYPE: FL UGI DATE OF EXAM: 06/22/2021 COMPARISON: None HISTORY: Post gastric sleeve TECHNIQUE: Single contrast technique is utilized. Fluoroscopic imaging overhead radiographs were obta ined. Isovue-370 was administered orally. FINDINGS: No free air is under the diaphragms. Contrast passes through the esophagus to the gastroesophageal ju nction without hesitancy. Gastroesophageal junction opens normally. Contrast passes readily through t he gastric sleeve without extravasation evident. Fluoroscopy time: 30 seconds Images: 82 IMPRESSION: 1. No extravasation single contrast gastric sleeve evaluation
[2021-06-22] MEDS: METOPROLOL TARTRATE 25 MG TAB PO SCH ×2 (13:52→20:22)
[2021-06-22] MEDS: KETOROLAC 15 MG/ML 1 ML VIAL IVP SCH ×2 (13:55→17:43)
[2021-06-22] MEDS: ACETAMINOPHEN TAB 500 MG TAB PO SCH (21:09)
[2021-06-23] MEDS: KETOROLAC 15 MG/ML 1 ML VIAL IVP SCH ×3 (02:15→11:34)
[2021-06-23] MEDS: LEVOTHYROXINE 50 MCG TAB PO SCH (05:58)
[2021-06-23] MEDS: ACETAMINOPHEN TAB 500 MG TAB PO SCH ×2 (06:11→11:36)
[2021-06-23] MEDS: SYMBICORT 160-4.5 MCG INHALER INHALATION SCH (07:26)
[2021-06-23] MEDS: ALBUTEROL NEBULIZED 2.5 MG/3 ML INHALATION SCH ×3 (07:26→15:27)
[2021-06-23 07:44] VITALS: BP 164/73; RESP 18; TEMP 98.3
[2021-06-23] MEDS: ENOXAPARIN 40 MG/0.4 ML SYRINGE SQ SCH (07:51)
[2021-06-23] MEDS: METOPROLOL TARTRATE 25 MG TAB PO SCH (07:51)
[2021-06-23] MEDS: PANTOPRAZOLE 40 MG/10 ML VIAL IV SCH (07:52)
[2021-06-23] MEDS: 1: THIAMINE 100 MG, FOLIC ACID 1 MG in 0.9% NACL WITH KCL 20 MEQ/L 1,000 ML 2: 0.9% NAC IVPB SCH (07:55)
[2021-06-23] MEDS ORDERED: bisacodyL 5 MG TABLET.DR PO PRN (08:00)
[2021-06-23 09:51] LABS: Basophils % (A) 1 %; Eosinophils # (A) 0.1 k/uL (0-0.7); Eosinophils % (A) 1 %; HCT 37.3 % (34.0-46.0); HGB 11.9 gm/dL (11.4-16.0); Lymphocytes % (A) 13 %; MCH 29.4 pg (25.0-35.0); MCV 91.7 fL (80.0-100.0); Mean Platelet Volume 7.8; Monocytes # (A) 0.5 k/uL (0-1.0); Monocytes % (A) 7 %; Neutrophils # (A) 5.9 k/uL (1.3-7.7); Neutrophils % (A) 77 %; Platelet Count 158 k/uL (150-450); RBC 4.06 m/uL (3.80-5.40); RDW 13.7 % (11.5-15.5); WBC 7.7 k/uL (3.8-10.6)
[2021-06-23 10:11] LABS: African American GFR (CKD) >90 (>60 ml/min/1.73 sqM); Anion Gap 2 mmol/L; Blood Urea Nitrogen 14 mg/dL (7-17); Calcium 8.3 mg/dL (8.4-10.2); Carbon Dioxide 27 mmol/L (22-30); Chloride 106 mmol/L (98-107); Glucose 81 mg/dL (74-99); Non-African American GFR(CKD) >90 (>60 ml/min/1.73 sqM); Potassium 4.4 mmol/L (3.5-5.1); Sodium 135 mmol/L (137-145)
[2021-06-23 11:33] VITALS: PULSE 72
--- NOTE | 2021-06-23 13:41 | P.DS ---
Providers Date of admission: 06/21/21 10:23 Expected date of discharge: 06/23/21 Attending physician: Santi Dominguez Consults: 06/21/21 13:21 Consult Physician Routine Consulting Provider: Bg Onofre Consult Reason/Comments: med mgmt Do you want consulting provider notified?: Yes Primary care physician: [facility] Course: Discharge diagnosis 1. Morbid obesity status post laparoscopic sleeve gastrectomy 2. Asthma 3. Osteoarthritis 4. GERD 5. Small moderate sized hiatal hernia Hospital course 60-year-old female initially seen for bariatric consultation in December of this year. Patient has tried a variety of weight loss methods over the years without sustained success. Patient suffers from arthritis asthma and mild reflux. Patient with history of previous pulmonary embolism and required a tracheostomy at that time. Patient underwent recent upper endoscopy showing mild gastritis. Recent BMI 56. History of previous tobacco use but quit many years ago. Status post laparoscopic sleeve gastrectomy. Patient tolerated surgery well. Her upper GI showed no evidence of leak or obstruction. She is tolerating a bariatric clear liquid diet. Her pain is controlled. She is having flatus. She is urinating without difficulty. She is up and ambulating. She is afebrile. She is stable for discharge. Please refer to chart for any further details. Physician Flake Miller Helper note has been reviewed by physician. Signing provider agrees with the documented findings, assessment, and plan of care. Patient Condition at Discharge: Stable Plan - Discharge Summary Discharge Rx Participant: Yes New Discharge Prescriptions: New bisacodyL [Dulcolax] 5 mg PO DAILY PRN #10 tab PRN Reason: Constipation Omeprazole [PriLOSEC] 40 mg PO DAILY #30 cap Ondansetron Odt [Zofran Odt] 4 mg PO Q8HR PRN #9 tab PRN Reason: Nausea Simethicone 40 mg/0.6 ml Drops [Mylicon Drops] 40 mg PO PCHS PRN #30 ml PRN Reason: Gas Continue Metoprolol Tartrate [Lopressor] 75 mg PO BID Albuterol Sulfate [Proair Hfa] 2 puff INHALATION BID PRN PRN Reason: Shortness Of Breath Furosemide [Lasix] 20 mg PO DAILY PRN PRN Reason: Edema Ascorbic Acid [Vitamin C] 500 mg PO DAILY Vitamin B Complex 1 each PO DAILY Ipratropium-Albuterol Nebulize [Duoneb 0.5 mg-3 mg/3 ml Soln] 3 ml INHALATION Q4H PRN PRN Reason: Shortness Of Breath Apixaban [Eliquis] 5 mg PO BID HYDROcodone/APAP 7.5-325MG [[place] 7.5-325] 1 tab PO Q6HR PRN PRN Reason: Pain Zinc 50 mg PO DAILY Fluticasone/Salmeterol [Advair Hfa 115-21 Mcg Inhaler] 2 puff INHALATION BID Cholecalciferol (Vitamin D3) [Vitamin D3 (5000 Iu)] 125 mcg PO DAILY Cyanocobalamin [Vitamin B-12] 500 mcg PO DAILY Potassium Gluconate [Potassium Gluconate ER] 99 mg PO HS Levothyroxine Sodium [Euthyrox] 50 mcg PO DAILY Discharge Medication List Albuterol Sulfate [Proair Hfa] 2 puff INHALATION BID PRN 12/24/13 [History] Metoprolol Tartrate [Lopressor] 75 mg PO BID 12/24/13 [History] Furosemide [Lasix] 20 mg PO DAILY PRN 09/09/14 [History] Ascorbic Acid [Vitamin C] 500 mg PO DAILY 01/15/21 [History] Cholecalciferol (Vitamin D3) [Vitamin D3 (5000 Iu)] 125 mcg PO DAILY 01/15/21 [History] Cyanocobalamin [Vitamin B-12] 500 mcg PO DAILY 01/15/21 [History] Fluticasone/Salmeterol [Advair Hfa 115-21 Mcg Inhaler] 2 puff INHALATION BID 01/15/21 [History] Vitamin B Complex 1 each PO DAILY 01/15/21 [History] Zinc 50 mg PO DAILY 01/15/21 [History] Ipratropium-Albuterol Nebulize [Duoneb 0.5 mg-3 mg/3 ml Soln] 3 ml INHALATION Q4H PRN 02/11/21 [History] Apixaban [Eliquis] 5 mg PO BID 03/01/21 [History] HYDROcodone/APAP 7.5-325MG [[place] 7.5-325] 1 tab PO Q6HR PRN 06/17/21 [History] Levothyroxine Sodium [Euthyrox] 50 mcg PO DAILY 06/17/21 [History] Potassium Gluconate [Potassium Gluconate ER] 99 mg PO HS 06/17/21 [History] Omeprazole [PriLOSEC] 40 mg PO DAILY #30 cap 06/23/21 [Rx] Ondansetron Odt [Zofran Odt] 4 mg PO Q8HR PRN #9 tab 06/23/21 [Rx] Simethicone 40 mg/0.6 ml Drops [Mylicon Drops] 40 mg PO PCHS PRN #30 ml 06/23/21 [Rx] bisacodyL [Dulcolax] 5 mg PO DAILY PRN #10 tab 06/23/21 [Rx] [facility] up [facility]ment(s[facility]Ref[facility] [place] [place] [facility] [place] 1 Week Activity/Diet/Wound Care/Special Instructions: No driving while taking [place] No lifting over 10 pounds You may shower. No soaking or tub baths for 2 weeks Very light activity until you are reevaluated at your follow up appointment with your surgeon Discharge Disposition: HOME SELF-CARE
--- NOTE | 2021-06-23 21:12 | P.PN ---
Progress Note - Text Progress Note Date: 06/23/21 - Chief Complaint Sleeve gastrectomy This is a very pleasant 60-year-old patient who follows with Dr. De Santiago. Chronic stable medical conditions include COPD, osteoarthritis, pulmonary embolism in 2005, hypothyroid, urinary incontinence. Patient has undergone sleeve gastrectomy. Postprocedure patient nothing by mouth. Having pain in the abdomen. No nausea vomiting. Laying in bed. June 22: Reclining in bed. Some abdominal pain. No nausea vomiting. Pending barium upper GI. Did pass some flatus. Has been out of bed. June 23: Patient underwent fluoroscopy upper GI. Started on. Bariatric diet. Tolerating pills. Care was discussed. Ambulating. Review of systems: Was done for constitutional, cardiovascular, GI, pulmonary. relevant finding as above Current medications reviewed Past medical history to include: COPD, OA, PE, hypothyroid, eczema, urinary incontinence, Social history: This is a brother. Smoked a pack a day for close to 30 years. Stopped in 2005. Alcohol rarely. Family history: Reviewed, noncontributory to presentation Physical examination: VITAL SIGNS: 98.3, 84, 18, 164/73, 90% room air GENERAL: Laying in bed, awake EYES: Pupils equal. Conjunctiva normal. HEENT: External appearance of nose and ears normal, oral cavity grossly normal. NECK: JVD not raised; masses not palpable. HEART: First and second heart sounds are normal; no edema. LUNGS: Respiratory rate normal; decreased breath sounds. ABDOMEN: Soft, tender, no guarding rigidity, liver spleen not palpable, no masses palpable. PSYCH: Alert and oriented x3; mood and affect normal. INVESTIGATIONS, reviewed in the clinical context: June 22: White count 11 hemoglobin 12.5 sodium 142 potassium 5 creatinine 0.7 [June 19] WBC 10.6 hemoglobin 14.3 platelets 252 potassium 5 BUN 28 creatinine 0.71 Assessment and plan:: -Morbid obesity BMI 54.9 Weight loss measures. -Sleeve gastrectomy. Bariatric diet -COPD in an ex-smoker Advair 150/21 2 puffs twice a day, albuterol 2 puffs twice a day when necessary -Primary osteoarthritis multiple joints bilateral Pain medication as needed -Hypothyroid Synthroid 50 g a day -Chronic urinary stress incontinence Diapers -Essential hypertension Lopressor 75 mg twice a day Discussed with patient. Follow-up with PCP. Home medications to continue. Thank you Dr. Dominguez
== END 2021-06-23 16:14 | disposition home or self-care (01) | DRG 621 ==
LOC: EDSTATUS 07:45 → 2ORMAIN 10:23 → 4SSUR 15:53
PROVIDERS: ADMIT Surgery; ATTEND Surgery
PROC: 0BQT0ZZ Repair Diaphragm, Open Approach (ICD-10-PCS; 2021-06-21)
PROC: 0DB64Z3 Excision of Stomach, Percutaneous Endoscopic Approach, Vertical (ICD-10-PCS; principal; 2021-06-21 11:30)
DX: E66.01 Morbid (severe) obesity due to excess calories (principal); Z86.711 Personal history of pulmonary embolism; K29.70 Gastritis, unspecified, without bleeding; K21.9 Gastro-esophageal reflux disease without esophagitis; J44.9 Chronic obstructive pulmonary disease, unspecified; I10 Essential (primary) hypertension; Z68.43 Body mass index [BMI] 50.0-59.9, adult; E16.2 Hypoglycemia, unspecified; I49.9 Cardiac arrhythmia, unspecified; M15.9 Polyosteoarthritis, unspecified; E03.9 Hypothyroidism, unspecified; N39.3 Stress incontinence (female) (male); K44.9 Diaphragmatic hernia without obstruction or gangrene; R32 Unspecified urinary incontinence; Z79.899 Other long term (current) drug therapy; Z87.891 Personal history of nicotine dependence; Z79.01 Long term (current) use of anticoagulants; Z79.890 Hormone replacement therapy; Z79.51 Long term (current) use of inhaled steroids; Z90.710 Acquired absence of both cervix and uterus; Z88.1 Allergy status to other antibiotic agents; Z88.2 Allergy status to sulfonamides; Z90.49 Acquired absence of other specified parts of digestive tract; Z87.01 Personal history of pneumonia (recurrent)
CPT/HCPCS: 36415; 74240; 80048; 80051; 80053; 82310; 82565; 83735; 84100; 84520; 85025; 88307; 94640; 94760

== ENCOUNTER → 2021-06-25 | Outpatient (CLI) | payer MEDICARE, OTHER ==
[2021-06-25 11:12] VITALS: BP 190/82; PULSE 91; TEMP 98.1; BMI 53.1
== END ==
LOC: BARWHC3 10:43
PROVIDERS: ATTEND Surgery
DX: Z08 Encounter for follow-up examination after completed treatment for malignant neoplasm (principal); R21 Rash and other nonspecific skin eruption; Z98.84 Bariatric surgery status; Z87.891 Personal history of nicotine dependence; Z88.0 Allergy status to penicillin; Z88.1 Allergy status to other antibiotic agents; Z88.2 Allergy status to sulfonamides; Z91.012 Allergy to eggs
CPT/HCPCS: 99211

== ENCOUNTER → 2021-06-29 | Outpatient (CLI) | payer MEDICARE, OTHER ==
[2021-06-29 14:33] VITALS: BP 149/87; PULSE 86; RESP 16; TEMP 98.1; BMI 52.4
--- NOTE | 2021-06-29 15:19 | P.BASOAP ---
Subjective Progress Note Date: 06/29/21 Principal diagnosis: Morbid obesity Patient returns 1 week after sleeve gastrectomy. Overall doing quite well. No dysphagia, no vomiting, no reflux. Denies abdominal pain. She has had issues with rash around her torso since the surgery was performed. No fevers. Objective - Vital Signs Vital signs: Vital Signs Temp 98.1 F 06/29/21 14:31 Pulse 86 06/29/21 14:31 Resp 16 06/29/21 14:31 BP 149/87 06/29/21 14:31 Pulse Ox Intake & Output 06/28/21 06/29/21 06/29/21 18:59 06:59 18:59 Weight 123.831 kg - Exam Abdomen: Soft, nondistended, incisions clean and dry, erythematous rash across entire abdomen and also around her cheekbones Assessment/Plan (1) Morbid obesity with BMI of 50.0-59.9, adult Narrative/Plan: Patient doing well after recent sleeve gastrectomy. Tolerating liquid diet nicely and getting good protein intake as well. Continue dietary advancement as prescribed. Continue light lifting. We'll order Medrol Dosepak because of the severe rash. Continue Benadryl and hydrocortisone cream as well. Follow-up 2-3 weeks. Plan: Date: 06/29/21 Initial Weight: 123.831 kg Initial BMI: 52.4 Current Weight: 123.831 kg Current BMI: 52.4 Type of Surgery: Vertical Sleeve Gastrectomy Total Volume in Band: Previous Volume: Volume Removed: Volume Added: Band Size:
== END ==
LOC: BARWHC3 14:07
PROVIDERS: ATTEND Surgery
DX: E66.01 Morbid (severe) obesity due to excess calories (principal); Z98.84 Bariatric surgery status; Z68.43 Body mass index [BMI] 50.0-59.9, adult; Z88.0 Allergy status to penicillin; Z88.1 Allergy status to other antibiotic agents; Z88.2 Allergy status to sulfonamides; Z91.012 Allergy to eggs
CPT/HCPCS: 97803; G0463; 99211

== ENCOUNTER → 2021-07-13 | Outpatient (CLI) | payer MEDICARE, OTHER ==
[2021-07-13 13:51] VITALS: BP 126/80; PULSE 77; RESP 18; TEMP 98.1; BMI 50.7
--- NOTE | 2021-07-13 14:10 | P.BASOAP ---
Subjective Progress Note Date: 07/13/21 Principal diagnosis: Morbid obesity patient returns for evaluation. She is 3 weeks post sleeve gastrectomy. Owing well at this time. She had an episode of emesis once. No heartburn. No abdominal pain. She has lost 9 pounds since her last visit. The rash that she had is now gone. She is seen the dietitian today. Objective - Vital Signs Vital signs: Vital Signs Temp 98.1 F 07/13/21 13:29 Pulse 77 07/13/21 13:29 Resp 18 07/13/21 13:29 BP 126/80 07/13/21 13:29 Pulse Ox Intake & Output 07/12/21 07/13/21 07/13/21 18:59 06:59 18:59 Weight 119.794 kg - Exam Abdomen: Soft, nontender, nondistended, incisions clean and dry, rash resolved Assessment/Plan (1) Morbid obesity with BMI of 50.0-59.9, adult Narrative/Plan: Patient doing well at this time. Continue advancing diet slowly. Gradually resume normal activities. We will see dietary today. Check one month labs next visit. Follow-up 4-6 weeks. Plan: Date: 07/13/21 Initial Weight: 123.831 kg Initial BMI: 52.4 Current Weight: 119.794 kg Current BMI: 50.7 Type of Surgery: Total Volume in Band: Previous Volume: Volume Removed: Volume Added: Band Size:
== END ==
LOC: BARWHC3 13:12
PROVIDERS: ATTEND Surgery
DX: E66.01 Morbid (severe) obesity due to excess calories (principal); Z68.43 Body mass index [BMI] 50.0-59.9, adult; Z98.84 Bariatric surgery status; Z88.0 Allergy status to penicillin; Z88.1 Allergy status to other antibiotic agents; Z88.2 Allergy status to sulfonamides; Z91.011 Allergy to milk products
CPT/HCPCS: 97803; G0463; 99211

== ENCOUNTER → 2021-08-03 | Outpatient (CLI) | payer MEDICARE, OTHER ==
[2021-08-03 13:33] VITALS: BP 142/82; PULSE 68; TEMP 98.6; BMI 50.3
--- NOTE | 2021-08-03 13:49 | P.BASOAP ---
Subjective Progress Note Date: 08/03/21 Principal diagnosis: Morbid obesity Patient returns for reevaluation. Doing well since last visit. She had her 1 month labs performed by her primary care physician last week. No heartburn symptoms or vomiting. SHe has no rash. Still feels a slight pain at the umbilicus at times. Has lost 6 pounds since last visit. Objective - Vital Signs Vital signs: Vital Signs Temp 98.6 F 08/03/21 13:31 Pulse 68 08/03/21 13:31 Resp BP 142/82 08/03/21 13:31 Pulse Ox Intake & Output 08/02/21 08/03/21 08/03/21 18:59 06:59 18:59 Weight 117.027 kg - Exam Abdomen: Soft, nontender, nondistended, incisions clean and dry Assessment/Plan (1) Morbid obesity with BMI of 50.0-59.9, adult Narrative/Plan: As above. Patient doing well at this time. Continue advancing bariatric diet. Check one month labs that were already performed. Continue antiacids. Follow- up 4-6 weeks. Plan: Date: 08/03/21 Initial Weight: 123.831 kg Initial BMI: 53.3 Current Weight: 117.027 kg Current BMI: 50.3 Type of Surgery: Total Volume in Band: Previous Volume: Volume Removed: Volume Added: Band Size:
== END ==
LOC: BARWHC3 13:08
PROVIDERS: ATTEND Surgery
DX: E66.01 Morbid (severe) obesity due to excess calories (principal); Z68.43 Body mass index [BMI] 50.0-59.9, adult; Z88.0 Allergy status to penicillin; Z88.1 Allergy status to other antibiotic agents; Z88.2 Allergy status to sulfonamides; Z91.012 Allergy to eggs
CPT/HCPCS: 97803; G0463; 99211

== ENCOUNTER → 2021-09-28 | Outpatient (CLI) | payer MEDICARE, OTHER ==
[2021-09-28 13:39] VITALS: BP 146/80; PULSE 67; RESP 16; TEMP 98.1; BMI 46.8
--- NOTE | 2021-09-28 14:19 | P.BASOAP ---
Subjective Progress Note Date: 09/28/21 Principal diagnosis: Morbid obesity Patient returns for reevaluation. She was last seen on 08/03. The pain at the umbilicus has resolved. Denies heartburn. Still taking antiacids. He has had some dysphagia to eggs and TUNA. She has lost 14 pounds since her last visit. Objective - Vital Signs Vital signs: Vital Signs Temp 98.1 F 09/28/21 13:37 Pulse 67 09/28/21 13:37 Resp 16 09/28/21 13:37 BP 146/80 09/28/21 13:37 Pulse Ox Intake & Output 09/27/21 09/28/21 09/28/21 18:59 06:59 18:59 Weight 110.677 kg - Exam Abdomen: Soft, nontender, nondistended Assessment/Plan (1) Morbid obesity with BMI of 50.0-59.9, adult Narrative/Plan: Patient doing well at this time. Continue antiacid therapy. Continue dietary and exercise regimen. Follow-up 4-6 weeks. Check 3 months labs at that time. Plan: Date: 09/28/21 Initial Weight: 123.831 kg Initial BMI: 52.4 Current Weight: 110.677 kg Current BMI: 46.8 Type of Surgery: Vertical Sleeve Gastrectomy Total Volume in Band: Previous Volume: Volume Removed: Volume Added: Band Size:
== END ==
LOC: BARWHC3 13:18
PROVIDERS: ATTEND Surgery
DX: E66.01 Morbid (severe) obesity due to excess calories (principal); Z68.42 Body mass index [BMI] 45.0-49.9, adult; Z98.84 Bariatric surgery status; Z88.0 Allergy status to penicillin; Z88.1 Allergy status to other antibiotic agents; Z88.2 Allergy status to sulfonamides; Z91.012 Allergy to eggs
CPT/HCPCS: 99211